=== PATIENT | female | born 1975 | race Caucasian/White ===

== ENCOUNTER 2024-03-01 07:51 | Emergency (ER) | payer BC ==
[2024-03-01] MEDS ORDERED: Morphine 4 MG/ML VIAL ONE (09:00)
[2024-03-01] MEDS ORDERED: Ondansetron PF 4 MG/2 ML Vial ONE (09:00)
[2024-03-01] MEDS ORDERED: Orphenadrine Citrate 60 MG/2 ML VIAL ONE (09:00)
== END 2024-03-01 10:01 | disposition home or self-care (01) ==
LOC: EEVIPCON 07:51 → CSHERS 07:51
DX: M54.41 Lumbago with sciatica, right side (principal)
CPT/HCPCS: 96374; 96375; J2272; J2360; J2405

== ENCOUNTER 2024-03-23 06:42 | Emergency (ER) | payer BC ==
[2024-03-23] MEDS ORDERED: Morphine 4 MG/ML VIAL ONE ×2 (07:17→12:43)
[2024-03-23] MEDS ORDERED: Ketorolac Tromethamine 30 MG (1 mL) VIAL ONE (07:17)
[2024-03-23] MEDS ORDERED: methylPREDNISolone Sod Succ 40 MG VIAL ONE (12:48)
== END 2024-03-23 13:18 | disposition home or self-care (01) ==
LOC: CSHERS 06:42
DX: M54.41 Lumbago with sciatica, right side (principal)
CPT/HCPCS: 72148; 96372; 96374; 96375; J1885; J2270; J2919